=== PATIENT | female | born 1960 | race Caucasian/White ===

== ENCOUNTER → 2016-07-30 | Outpatient (CLI) | payer OTHER ==
--- NOTE | 2016-07-31 16:49 | KCIC ---
PROCEDURE Bone survey dated 07/30/2016. HISTORY Pain and swelling with lytic lesion seen on distal right femur on recent MRI. TECHNIQUE Multiple images obtained. COMPARISON Bone scan dated 07/06/2016. Knee plain films dated 06/05/2016. FINDINGS Images of the cervical spine show normal sagittal alignment. Vertebral body heights are maintained. Moderate spondylotic changes with multilevel disc space narrowing. Images of thoracic spine show normal sagittal alignment. Moderate multilevel spondylosis. Vertebral body heights are maintained. No lytic or sclerotic lesions are visualized. Images of lumbar spine show normal sagittal alignment. Vertebral body heights are maintained. Moderate endplate hypertrophic changes with multilevel disc space narrowing. Moderate arthrosis lower lumbar apophyseal joints. Single view pelvis shows normal bony alignment. No lytic or sclerotic lesions are visualized. Mild degenerative change of the bilateral SI joint and pubic symphysis. Views right femur show well-circumscribed lytic lesion of the distal 1/3 femoral shaft, similar compared to recent knee plain films. No additional lytic lesions are seen. Moderate degenerative arthrosis at the knee joint. Views of left femur show no lytic or sclerotic lesions. No periostitis or bone destruction. Mild degenerative change at the left knee joint. Images of the left humerus show intact humeral shaft. No lytic or destructive lesions. No periostitis. Images of the right humerus show normal bony alignment. No lytic or sclerotic lesions. Mild degenerative change of the AC joint. PA and lateral views of the chest shows normal heart and mediastinal contours. Lungs are clear without focal consolidation. There are no apparent bone lesion. IMPRESSION Solitary lytic focus at the distal 1/3 shaft right femur, similar to recent knee films, indeterminate. Given the lack of significant uptake on recent bone scan, this could represent a benign bone lesion or multiple myeloma. No additional lytic lesions are apparent. Electronically signed by: Eduard De La Cruz (Jul 31, 2016 16:48:05)
== END | disposition home or self-care (01) ==
LOC: KCIC 15:07
PROVIDERS: ATTEND Orthopaedic Surgery
DX: D49.89 Neoplasm of unspecified behavior of other specified sites (principal)
CPT/HCPCS: 77075

== ENCOUNTER 2016-08-09 08:18 | Outpatient (CLI) | payer OTHER ==
[2016-08-09] VITALS (10 sets, daily range): BP systolic 103–123; BP diastolic 64–75
[~2016-08-09] VITALS: Ht 177.8 cm; Wt 104.3 kg
[2016-08-09] MEDS ORDERED: LIDOCAINE 1% / SOD BICARB 8.4% 20 ML VIAL. IJ ONE ×3 (08:39→10:00)
[2016-08-09 08:51] LABS: BASO # 0.1 x10^3/uL (0.0-0.2); BASO % 2 % (0-3); EOS % 4 % (0-3); HEMATOCRIT 39.5 % (36.0-47.0); HEMOGLOBIN 13.3 g/dL (12.0-15.5); LYMPH # 2.1 x10^3/uL (1.0-4.8); LYMPH % 37 % (24-48); MEAN CORPUSCULAR HEMOGLOBIN 33 pg (25-35); MEAN CORPUSCULAR HGB CONC 34 g/dL (31-37); MEAN CORPUSCULAR VOLUME 97 fL (79-100); MONO % 8 % (0-9); NEUT % 49 % (31-73); PLATELET COUNT 328 x10^3/uL (140-400); RED BLOOD COUNT 4.07 x10^6/uL (3.50-5.40); RED CELL DISTRIBUTION WIDTH 12.8 % (11.5-14.5); WHITE BLOOD COUNT 5.6 x10^3/uL (4.0-11.0)
[2016-08-09 09:00] LABS: PROTHROMBIN TIME PATIENT 12.9 SEC (11.7-14.0)
[2016-08-09] MEDS ORDERED: FENTANYL PF 250 MCG/5 ML VIAL. ONE (09:22)
[2016-08-09] MEDS ORDERED: MIDAZOLAM HCL/PF 5 MG/5 ML VIAL. ONE (09:22)
[2016-08-09] MEDS ORDERED: MIDAZOLAM HCL/PF 5 MG/5 ML VIAL. IV ONE (10:00)
[2016-08-09] MEDS ORDERED: FENTANYL PF 250 MCG/5 ML VIAL. IV ONE (10:00)
--- NOTE | 2016-08-09 10:51 | PDOC ---
MODERATE SEDATION ASSESSMENT RISKS/ALTERNATIVES Risks/Alternatives Risks and alternatives of this type of sedation and procedure discussed with: RISK/ALTERNATIVES: Patient H & P ON CHART H & P H & P on chart and reviewed for co-morbid conditions and appropriate labs. H&P ON CHART: Yes STATUS PREG STATUS ASSESSED: N/A MEDS/ALLERGIES REVIEWED Meds/Allergies Reviewed Medications and Allergies including time and route of recently administered narcotics and sedatives. MEDS/ALLERGIES REVIEWED: Yes ASA RATING ASA RATING: I AIRWAY ASSESSMENT Airway Assessment Airway patency, oral function limitations, presence of caps, crowns, dentures, partials, and ability to extend neck assessed. AIRWAY ASSESSMENT: Yes MALLAMPATI SCORE MALLAMPATI SCORE: II PRE-SEDATION ASSESSMENT PRE-SEDATION ASSESSMENT: Yes SIMI SOLOMON MD Aug 09, 2016 10:51
[2016-08-09] MEDS ORDERED: ASPI81TA2 PO (10:54)
[2016-08-09] MEDS ORDERED: FERR159T3 PO (10:54)
[2016-08-09] MEDS ORDERED: MULT-245 PO (10:54)
--- NOTE | 2016-08-09 10:57 | PDOC1 ---
History and Physical Date of Procedure Date of Admission 08/09/[address] guided bx distal right femur lesion Indication Indication 55 YO female with solitary lucent lesion within distal right femoral diametaphysis---? plasmacytoma Past Medical History Past Medical History See Nursing Pre Procedure PMH Past Surgical History Past Surgical History See Nursing Pre Procedure PSH Current Medications Current Medications Current Medications Lidocaine/Sodium Bicarbonate (Buffered Lidocaine 1%) 20 ml STK-MED ONCE IJ ; Start 08/09/16 at 08:39; Stop 08/09/16 at 08:40; Status DC Midazolam HCl (Versed) 5 mg STK-MED ONCE .ROUTE ; Start 08/09/16 at 09:22; Stop 08/09/16 at 09:23; Status DC Fentanyl Citrate (Fentanyl 5ml Vial) 250 mcg STK-MED ONCE .ROUTE ; Start at 09:22; Stop 08/09/16 at 09:23; Status DC Lidocaine/Sodium Bicarbonate (Buffered Lidocaine 1%) 20 ml STK-MED ONCE IJ ; Start 08/09/16 at 09:36; Stop 08/09/16 at 09:37; Status DC Lidocaine/Sodium Bicarbonate (Buffered Lidocaine 1%) 20 ml 1X ONCE IJ Last administered on 08/09/16 10:12; Start 08/09/16 at 10:00; Stop 08/09/16 at 10:01 ; Status DC Midazolam HCl (Versed) 5 mg 1X ONCE IV Last administered on 08/09/16 10:12; Start 08/09/16 at 10:00; Stop 08/09/16 at 10:01; Status DC Fentanyl Citrate (Fentanyl 5ml Vial) 250 mcg 1X ONCE IV Last administered on 10:13; Start 08/09/16 at 10:00; Stop 08/09/16 at 10:01; Status DC Allergies Allergies: Coded Allergies: No Known Drug Allergies (Unverified , 08/09/16) Physical Exam Vital Signs Vital Signs Date Time Temp Pulse Resp B/P Pulse Ox O2 Delivery O2 Flow Rate FiO2 08/09/16 10:45 61 25 98 Nasal Cannula 08/09/16 10:08 2.0 08/09/16 09:22 98.2 123/75 98.2 Lungs: Clear to auscultation Heart: Regular rate Psych/Mental Status: Mental status NL Diagnostic Data/Imaging Images PMC WBBS from 07/06/16 and skeletal survey from 07/30/16 reviewed Assessment Assessment Solitary lucent lesion within distal right femur---negative bone scan---? plasmacytoma per Oncology Problems: Plan Plan CT guided distal rt femur bone bx SIMI SOLOMON MD Aug 09, 2016 10:57
--- NOTE | 2016-08-09 11:01 | PDOC ---
Exam Managed Services Consultant Managed Services Consultant Timothy Pre-Procedure Diagnosis Pre-Procedure Diagnosis 55 YO female with solitary, bone scan negative, lucent lesion within distal rt femoral diametaphysis---? of plasmacytoma raised by Oncology Post-Procedure Diagnosis Post-Procedure Diagnosis Same Procedure Performed Procedure Performed CT guided distal rt femur bone bx/aspirate Type of Anesthesia Type of Anesthesia Local + Mod sedation Estimated Blood Loss EBL: Trace Specimens Specimans Attempted drill assisted core bx nonproductive. Aspirate from center of lucent lesion productive of blood clot samples ---to path in syringe and in formalin Condition of Patient Condition of Patient Stable. No apparent complication. Disposition Disposition Home from [facility] post recovery, if no problems. F/u with Dr Chang. Full report to follow. SIMI SOLOMON MD Aug 09, 2016 11:01
--- NOTE | 2016-08-10 07:42 | RAD ---
CT-guided biopsy lucent lesion within distal right femoral diametaphysis. Indication: 55-year-old female with an incidental lucent bone lesion identified within distal right femur on the x-rays done for knee pain. Bone scan negative. No additional lucent/lytic lesion identified on skeletal survey. Bone biopsy has been requested by oncology to exclude the possibility of solitary plasmacytoma. Anesthesia: 27 minutes moderate sedation was provided utilizing a total of 2.5 mg Versed and 125 mcg fentanyl, IV. The patient was appropriately monitored by a qualified independent observer throughout the time of moderate sedation. Consent: The procedure was explained in its entirety to the patient and/or the patient's designated territory service representative by a member of the treatment team. This included a discussion of risks and benefits and acceptable alternatives to the procedure, as well as expected consequences of no treatment at all. Discussion of risks included, but was not limited to, those that are most frequent and those that are rare, but possibly severe or life-threatening, as well as the possibility of unforeseen complications. Procedure: Informed consent was obtained from the patient. She was placed supine on the CT scanner. Preliminary noncontrast CT images were obtained through distal right femur. Those images confirmed the presence of a small 15 mm lucent lesion within anterior aspect of distal right femoral diametaphysis. Endosteal scalloping is noted. There is no periosteal reaction. No tumor matrix was seen. No associated extraosseous soft tissue tissue mass. An overlying anterior skin site suitable for CT-guided biopsy was selected and marked. That area was prepped and draped in the usual sterile fashion. Moderate sedation was provided with IV Versed and fentanyl. Using aseptic technique, local anesthesia, and CT guidance, the 11-gauge needle from [employer] drill assisted bone biopsy system was successfully advanced into and through anterior femoral cortex. A single drill assisted core biopsy was performed through the lucent lesion, but was entirely nonproductive. The 11-gauge needle was reintroduced into the lucent lesion. 12 cc of blood was aspirated, and was submitted in a syringe to pathology for cell block preparation. An additional small blood clot was submitted to pathology in formalin. The needle was removed and a sterile dressing was applied. Patient tolerated the procedure well without apparent complication. Impression: CT-guided biopsy of small lucent lesion within distal right femur was attempted. Drill assisted core biopsy was entirely nonproductive. Bloody aspirate was submitted to pathology for cell block preparation. PQRS Compliance Statement: One or more of the following individualized dose reduction techniques was utilized for this procedure: 1. Automated exposure control. 2. Adjustment of MA and/or KV according to patient size. 3. Iterative reconstruction technique.
--- NOTE | 2016-08-10 16:32 | PATHOLOGY ---
PATHOLOGY REPORT * * * * * * * * FINAL DIAGNOSIS: Right femur lytic lesion, CT-guided biopsy: - Blood clot containing small segments of hematopoietic marrow and few minute segments of bone. COMMENT: The specimen primarily consists of blood clot. There are scattered small segments of hematopoietic marrow showing trilineage hematopoiesis, and there are small segments of calcified bone. There is no evidence of a plasmacytoma. There is no evidence of malignancy. (JPM:mgr; d/t: 08/10/16) REPORT ELECTRONICALLY SIGNED BY: Francis Roca M.D. DATE/TIME: 08/10/2016 16:32 * * * * * * * * GROSS PATHOLOGY: The specimen is received in formalin labeled "Silvia Flores, right femur lytic lesion". Received is a moderate amount of blood coagulum admixed with pink-jackson possible soft tissue measuring 4.2 x 3.0 x 1.1 cm in aggregate dimensions. The specimen is filtered and entirely submitted in cassettes A1 through A3. (CAA; 08/09/2016) INITIAL CPT CODE(S): A; 75354 Professional services performed [place] [email or web address] [place] [address] Technical services performed by [facility] at [address] [place] [address], [address], [place] [address]. SPECIMEN(S) RECEIVED: A.Right femur lytic lesion CLINICAL HISTORY: Solitary lucent lesion distal right femur, negative bone scan, by patient history no abnormal protein, ? plasmacytoma PATIENT: SILVIA FLORES /AGE: 9 1960 (Age: 55) PATIENT #: [id number] ALT CASE #: SPECIMEN COLLECTION DATE: 08/09/2016 SPECIMEN RECEIVED DATE: 08/09/2016 [facility] - [address] [place] [address] - PHONE: [phone] * * * END OF REPORT * * *
== END 2016-08-09 11:15 | disposition home or self-care (01) ==
LOC: INTRAD 08:18
PROVIDERS: ATTEND Internal Medicine Hematology & Oncology
DX: M89.9 Disorder of bone, unspecified (principal); M19.90 Unspecified osteoarthritis, unspecified site; Z90.710 Acquired absence of both cervix and uterus; Z79.01 Long term (current) use of anticoagulants
CPT/HCPCS: 20225; 36415; 77012; 85027; 85610; 85730; J2250; J3010; 88305

== ENCOUNTER → 2020-08-22 | Outpatient (CLI) | payer OTHER ==
[2016-08-09 11:00] VITALS: BP 107/64
[~2020-08-22] MED LIST: ASPI-630 PO; CHERRY PO; CHOL500016 PO; CRAN500T3 PO; CYAN25008 PO; DOCU-150 PO; FERR159T3 PO; FISH12002 PO; GLUC15006 PO; MAGN500C10 PO; MULT-245 PO; POTA10TA12 PO; TURM500C4 PO; VITA400C37 PO; [UNRECOGNIZED DRUG - CODE] PO
[2020-08-22 09:19] LABS: BASO # 0.1 x10^3/uL (0.0-0.2); BASO % 1 % (0-3); EOS # 0.2 x10^3/uL (0.0-0.7); EOS % 3 % (0-3); HEMATOCRIT 37.8 % (36.0-47.0); HEMOGLOBIN 12.9 g/dL (12.0-15.5); LYMPH # 1.6 x10^3/uL (1.0-4.8); LYMPH % 28 % (24-48); MEAN CORPUSCULAR HEMOGLOBIN 33 pg (25-35); MEAN CORPUSCULAR HGB CONC 34 g/dL (31-37); MEAN CORPUSCULAR VOLUME 96 fL (79-100); MONO # 0.5 x10^3/uL (0.0-1.1); MONO % 8 % (0-9); NEUT # 3.4 x10^3/uL (1.8-7.7); NEUT % 60 % (31-73); PLATELET COUNT 364 x10^3/uL (140-400); RED BLOOD COUNT 3.95 x10^6/uL (3.50-5.40); RED CELL DISTRIBUTION WIDTH 13.3 % (11.5-14.5); WHITE BLOOD COUNT 5.7 x10^3/uL (4.0-11.0)
[2020-08-22 09:28] LABS: PROTHROMBIN TIME PATIENT 12.3 SEC (11.7-14.0)
[2020-08-22 09:29] LABS: ALBUMIN 3.7 g/dL (3.4-5.0); CALCIUM 8.6 mg/dL (8.5-10.1); CREATININE 0.7 mg/dL (0.6-1.0); GFR 85.4
--- NOTE | 2020-08-22 12:07 | EKG ---
[facility] [address] [place] [address] Test Date: 2020-08-22 Test Time: 12:02:52 Pat Name: JOEY LIZAMA Department: Room: Gender: F Boiler Blower: : 1960 Requested By: SUZY HEBERT Order Number: [id number] Reading MD: Wilder Thakur MD Measurements Intervals [place] Rate: 65 P: 48 SC: 150 QRS: -2 QRSD: 86 T: 34 QT: 412 QTc: 429 Interpretive Statements SINUS RHYTHM NON-SPECIFIC ST/T CHANGES Electronically Signed On 08-25-2020 10:45:00 CDT by Wilder Thakur MD
--- NOTE | 2020-08-22 13:10 | RAD ---
AP and Lateral Views of the Chest 08/22/2020 12:34 PM Indication: Reason: joint class-hx hyperlipidemia-preop eval, knee surgery / Spl. Instructions: / Hi story: Comparison: None Findings: There is no focal consolidation or infiltrate identified. The cardiomediastinal silhouette is within normal limits. There is no evidence of pneumothorax or pleural effusion. Degenerative ellis es of the thoracic spine noted. Impression: No evidence of acute cardiopulmonary process. Electronically signed by: Casey Alcaraz MD (08/22/2020 1:08 PM) [id number]
[2020-08-23 02:12] LABS: HEMOGLOBIN A1C 5.4 % (4.8-5.6)
== END ==
LOC: SURGPAT 12:33
PROVIDERS: ATTEND Orthopaedic Surgery
DX: Z01.818 Encounter for other preprocedural examination (principal); M17.11 Unilateral primary osteoarthritis, right knee; E78.5 Hyperlipidemia, unspecified
CPT/HCPCS: 36415; 71046; 80048; 82040; 82306; 83036; 85025; 85610; 85651; 87641; 93005

== ENCOUNTER 2020-09-12 08:31 | Observation (INO) | payer OTHER ==
[2020-08-22 12:20] VITALS: BP 151/86
[~2020-09-12] VITALS: Ht 175.3 cm; Wt 104.6 kg
[2020-09-12] VITALS (11 sets, daily range): BP systolic 97–132; BP diastolic 55–77
[~2020-09-12 08:31] MED LIST changes: +ACETAMINOPHEN 500 MG TABLET PO PRN; +CELECOXIB 100 MG CAPSULE. PO PRN; -DOCU-150 PO; +DOCU-158 PO; +IV RINGERS,LACTATED 1000ML 1,000 ML IV SCH; +MORPHINE SULFATE 2 MG/ML VIAL. IVP PRN; +PROCHLORPERAZINE 10 MG/2 ML VIAL. IVP PRN; +TRANEXAMIC ACID 1,000 MG in IV NS 50ML -- 1ST BAG INJ ONE; +TRANEXAMIC ACID 1,000 MG in IV NS 50ML -- 2ND BAG INJ ONE; +TV=100ml MORPHINE 5 MG, KETOROLAC 30 MG, ROPIVacaine 0.5% PF 60 ML, EPINEPH... INT ART ONE; +fentaNYL PF VIAL 100 MCG/2 ML VIAL IVP PRN
[2020-09-12] MEDS ORDERED: TRANEXAMIC ACID in NS IVPB 100 ML ONE (08:42)
[2020-09-12] MEDS ORDERED: TOBRAMYCIN POWDER 1.2 GM VIAL. ONE (08:43)
[2020-09-12] MEDS ORDERED: VANCOMYCIN 1 GM VIAL. ONE ×2 (08:43)
[2020-09-12] MEDS ORDERED: fentaNYL PF VIAL 100 MCG/2 ML VIAL ONE ×4 (09:38→13:10)
[2020-09-12] MEDS ORDERED: SUCCINYLCHOLINE 200 MG/10 ML VIAL. ONE (09:40)
[2020-09-12] MEDS ORDERED: BUPIVACAINE MPF 0.25% 30 ML VIAL. ONE (10:01)
[2020-09-12] MEDS ORDERED: BUPIVACAINE MPF 0.5% 30 ML VIAL. ONE (10:01)
[2020-09-12] MEDS ORDERED: methylPREDNISolone ACETATE 80 MG/ML VIAL. ONE (10:01)
[2020-09-12] MEDS ORDERED: PROPOFOL 10 MG/ML (20ML) VIAL. IV ONE (11:08)
[2020-09-12] MEDS ORDERED: DEXAMETHASONE SOD PHOS 4 MG/ML VIAL ONE (11:08)
[2020-09-12] MEDS ORDERED: LIDOCAINE 2% PF 5 ML VIAL. ONE (11:08)
[2020-09-12] MEDS ORDERED: ONDANSETRON PF 4 MG/2 ML VIAL. ONE (11:08)
[2020-09-12] MEDS ORDERED: SEVOFLURANE 61 TO 120 MINUTES. IH ONE (12:29)
[2020-09-12] MEDS: fentaNYL PF VIAL 100 MCG/2 ML VIAL IVP PRN ×2 (13:15→13:20)
[2020-09-12] MEDS ORDERED: METOCLOPRAMIDE HCL 10 MG/2 ML VIAL. IVP PRN (13:30)
[2020-09-12] MEDS ORDERED: diphenhydrAMINE 50 MG/ML VIAL IVP PRN (13:30)
[2020-09-12] MEDS ORDERED: fentaNYL PF VIAL 100 MCG/2 ML VIAL IVP PRN (13:30)
[2020-09-12] MEDS ORDERED: 0.9 % SODIUM CHLORIDE 10 ML DISP.SYRIN. IV PRN (13:30)
[2020-09-12] MEDS ORDERED: CALCIUM CARBONATE 500 MG TAB.CHEW PO PRN (13:30)
[2020-09-12] MEDS ORDERED: ZOLPIDEM 5 MG TABLET. PO PRN (13:30)
[2020-09-12] MEDS ORDERED: PROCHLORPERAZINE 5 MG TABLET. PO PRN (13:30)
[2020-09-12] MEDS ORDERED: MORPHINE SULFATE 4 MG/ML VIAL. IVP PRN (13:30)
[2020-09-12] MEDS ORDERED: DEXTROSE 50% 25 GM / 50ML DISP.SYRIN. IV PRN (13:30)
[2020-09-12] MEDS ORDERED: PROCHLORPERAZINE 10 MG/2 ML VIAL. ONE (13:32)
[2020-09-12] MEDS ORDERED: HYDROmorphone 2 MG/ML VIAL ONE (13:33)
[2020-09-12] MEDS: HYDROmorphone 2 MG/ML VIAL IVP PRN ×4 (13:35→14:05)
--- NOTE | 2020-09-12 14:13 | PDOC4 ---
Operative Note Operative Note Date of Procedure: September 12, 2020 Pre-Op Diagnosis: Unilateral primary osteoarthritis, right knee. M17.11 Post-Op Diagnosis: same Procedure: right total knee arthroplasty with patella resurfacing, robotic assisted, CPT 71040 Surgeon: Suzy Johnson MD Safe And Vault Mechanic: GISEL Watkins Anesthesia: General EBL: 150 mL Specimens Obtained: right knee bone and soft tissue Complications: none Drains: pain catheter Tourniquet time: 70 Minutes Tourniquet Pressure: 300 mm Hg Indications for Procedure: Knee arthritis pain, affecting quality of life, unrelieved by nonoperative management Findings: Severe osteoarthritis with bone on bone contact laterally, with full thickness cartilage loss medially and at the patellofemoral joint, and fixed valgus contracture required lateral tibiofemoral soft tissue balancing. Implants: [employer]ay[employer] Nephew Journey II Total Knee System, Size 5 right bicruciate stabilized Journey II BCS Oxinium femoral component, size 4 right Journey nonporous tibial baseplate, size 5-6 12 mm right Journey II BCS constrained articular insert, 35 mm oval Denise II resurfacing patellar component Procedure in Detail: The patient was identified in the preoperative holding area, and the correct right lower extremity was marked by me. The patient was taken to the operating room where the patient was anesthetized by the Department of Anesthesia. Preoperative antibiotics were given intravenously. Tranexamic acid 1 g was given intravenously for intraoperative hemostasis. A "time-out" procedure was performed. The patient was positioned supine on the operative table with a tourniquet on the upper right thigh. A right hip bump and heel bump were attached to the operating table for later intraoperative positioning. The right lower limb was thoroughly scrubbed, then sterile Chloraprep solution was applied, and the limb was draped in sterile fashion. The operating team wore exhaust ventilated hoods with [employer] Personal Protection Toga Zippered Peel-Away protection system. An impervious stockinet and an adhesive drape were used such that the skin was entirely covered. The limb was exsanguinated with an Esmarch bandage, and the tourniquet was inflated. A midline skin incision was made with a scalpel using the patella and tibial tubercle as landmarks. Electrocautery was used for hemostasis. My assistant merchandise manager used rake retractors and a laparotomy sponge. A medial parapatellar arthrotomy incision was used with extension into the distal quadriceps tendon. The patella was retracted laterally and Hohmann retractors were now used by my assistant merchandise manager. Excess synovium, the menisci, and the cruciate ligaments were resected sharply. A periarticular multimodal ropivacaine anesthetic injection was used in the suprapatellar pouch and distal quadriceps muscle. The patella was everted and exposed. The patella thickness was measured with a caliper, and then cut freehand with a saw, using caliper measurements to assess the resection. The lateral retinaculum was partially released from the lateral patella using electrocautery. Rongeurs were used to make sure there were no remaining exposed patellar osteophytes medially or laterally. The patella was sized, and then drilled for an oval three-peg patella component. The tibial tracker array for the CORI system was applied to the tibial crest four finger breadths below the tibial tubercle, using percutaneous incisions and bicortical pins. The femoral tracker array was applied outside of the original incision using two separate stab incisions using bicortical pins. Checkpoint verification pins were not used, and the checkpoints used were on the arrays. Using the point probe, the medial and lateral malleoli were localized and the locations were stored. The center of the tibia was noted at the anterior cruciate ligament insertion and stored. The center of the femur was marked at the intersection of Whitesidess line with the transepicondylar axis. The hip center calculation was performed with range of motion of the hip. The femur neutral position was identified, and simulated weightbearing was performed with axial compression on the foot. Range of motion without stress was performed and the data collected. Range of motion with valgus stress, and range of motion with varus stress data collection was also performed. Rotational references include the Whitesidess line, and the trans-epicondylar axis. The femoral articular surface was now mapped in 3 dimensions using the point probe and digital data collected. The tibial condyle articular surfaces and cortical edges were mapped in 3 dimensions using the point probe including the medial and lateral tibial plateau. Implant planning was now performed on-screen with manipulation of the implant sizes, cut thicknesses and gaps, component rotation, component flexion/extension and component varus/valgus until satisfactory ligament balance, alignment and stability of the knee was expected throughout the range of motion. A lateral tibiofemoral release was performed with a piecrust technique using an 11 blade scalpel in the lateral soft tissues including the IT band. I did careful excision of medial osteophytes and medial joint line dissection due to the varus malalignment. My assistant merchandise manager held a Hohmann retractor, a medial Z-retractor, and an Army-Sturgis retractor to protect the medial and lateral collateral ligaments, the patellar tendon, the skin and the other soft tissues. The point probe was used to confirm the location of the checkpoint verification pins. The distal femoral surface was now prepared using CORI handpiece for bone removal to the previously planned distal femoral resection. The crosshairs at the pin locations were marked by using a mallet and the point probe for definitive location. A 5-in-1 Journey II cutting guide was then applied and the position was checked with the virtual shantanu wing from the CORI to ensure proper placement as the pins were applied. The posterior, anterior, and all chamfer cuts were made with the oscillating saw. Excess bone was removed with an osteotome and rongeurs. The tibial cutting guide was applied, positioned using the CORI virtual shantanu wing, and secured to the upper tibia using three pins at the previously planned location. The virtual shantanu wing was used to confirm the resection depth, slope and coronal alignment. The upper tibia was cut made with an oscillating saw. My assistant merchandise manager held Hohmann retractors and a posterior cruciate ligament retractor to protect the medial and lateral collateral ligaments, the patellar tendon, the skin, the peroneal nerve and the other soft tissues. The upper tibia was sized with a trial baseplate. The posterior compartment was cleared of osteophytes and loose bodies. The periarticular anesthetic injection was used in the posterior compartment. The box cut for a posterior stabilized component was made. A preliminary reduction was performed with a trial femur, trial tibial baseplate and trial polyethylene. The CORI system was used to confirm range of motion, and postoperative stressed gap assessment. The stability was assessed using different thicknesses of tibial articular surface to find satisfactory stability and good range of motion. The rotation of the tibial component was marked on the upper tibia. Final trial reduction was now performed verifying patella tracking and tibiofemoral stability and alignment. The bone pins and tracker arrays were removed, and the checkpoint verification pins were removed. The tibia preparation was completed with a drill, saw, and fin punch at the previously noted rotation. The final implants were verified and opened. Outer gloves were changed by the operating team. Betadine lavage was used and immedi ately rinsed with saline. After the bone cuts were irrigated with saline using the [place] InterPulse device the cut bone surfaces were carefully dried with suction and laparotomy sponges. Two packages of Zayas + Nephew Rally HV bone cement were mixed in powdered form with Vancomycin 1gm and Tobramycin 1.2 gm, and then vacuum-mixed with the monomer, and placed into a cement gun. The cut surfaces of the bone were thoroughly dried with suction and with laparotomy sponges for cement interdigitation. The final components were cemented into place. The knee was kept at full extension while the cement hardened, and excess cement was removed. Tranexamic acid 1 g was redosed intravenously for additional intraoperative hemostasis. The tourniquet was released, and electrocautery was used for hemostasis. A final periarticular anesthetic injection was used for pain relief. The bone pin sites on the tibial crest were closed with #3-0 Nylon sutures. A final check of [id number] and stability was made, and the polyethylene implant final size was chosen. The polyethylene implant was secured to the tibial baseplate, and the knee was reduced a final time and range of motion and stability was confirmed. The medial collateral ligament had been noted to be calcified and fragile intraoperatively. It had remained intact up until this point in the case. On the final reduction with the XLPE polyethylene, the medial collateral ligament became incompetent. I removed the XLPE polyethylene and I switched to a constrained polyethylene which stabilizes the knee nicely now. A pain catheter was inserted. Topical Vancomycin 1 gm was used during the c losure. The arthrotomy was closed with interrupted [id number] #1 Vicryl suture. The subcutaneous tissues were approximated initially with #2-0 Vicryl inverted interrupted sutures by my assistant merchandise manager. Next the subcuticular layer was approximated in a running fashion with #3-0 STRATAFIX suture by my assistant merchandise manager. The skin incision was then covered and reinforced by my assistant merchandise manager with Acticoat, followed by a RAZA single use negative pressure wound therapy dressing Soft roll and an Placido wrap were applied. Needle and sponge counts were correct. There were no apparent complications. The patient returned to the recovery room in stable condition. SUZY JOHNSON MD September 12, 2020 14:12
--- NOTE | 2020-09-12 14:18 | RAD ---
EXAM: Right knee, 2 views. HISTORY: Arthroplasty. COMPARISON: None. FINDINGS: 2 views the right knee are obtained. There is a right knee arthroplasty in expected positio n. There is soft tissue gas and joint fluid due to recent surgery. There is a posterior joint loose b ave. IMPRESSION: Right knee arthroplasty in expected position. Electronically signed by: Ligia Roper MD (09/12/2020 2:16 PM) [id number]
--- NOTE | 2020-09-12 16:49 | NUR ---
received from recovery. she is drowsy but denies pain at this time. she ambulated to bathroom to recliner without problems. remains at bedside. she had good pulses, sensation and motion bilateral lower extremities.
[2020-09-12] MEDS: IV NORMAL SALINE 1000ML BAG 1,000 ML IV SCH (17:16)
[2020-09-12] MEDS: ONDANSETRON ODT 4 MG TAB.RAPDIS. PO SCH ×2 (17:21→23:55)
[2020-09-12] MEDS: ONDANSETRON PF 4 MG/2 ML VIAL. IVP SCH ×2 (17:21→23:55)
[2020-09-12] MEDS: KETOROLAC 30MG VIAL 30 MG, BUPIVACAINE MPF 0.25% 20 ML, EPINEPHrine 0.5 MG in TOTAL VOL... INT ART SCH (18:15)
[2020-09-12] MEDS: ASPIRIN ENTERIC COATED 325 MG TABLET.DR. PO SCH (20:56)
[2020-09-12] MEDS: oxyCODONE/APAP 5/325 1 TAB TABLET PO PRN (20:57)
[2020-09-13 03:10] VITALS: BP 117/67
[2020-09-13] MEDS: KETOROLAC 30MG VIAL 30 MG, BUPIVACAINE MPF 0.25% 20 ML, EPINEPHrine 0.5 MG in TOTAL VOL... INT ART SCH (05:29)
[2020-09-13] MEDS: ONDANSETRON PF 4 MG/2 ML VIAL. IVP SCH ×2 (05:30→12:00)
[2020-09-13] MEDS: ONDANSETRON ODT 4 MG TAB.RAPDIS. PO SCH ×2 (05:30→12:00)
[2020-09-13] MEDS ORDERED: MAGNESIUM HYDROXIDE 2,400 MG/30 ML ORAL.SUSP. PO PRN (06:00)
[2020-09-13 06:29] VITALS: BP 119/70
[2020-09-13] MEDS: MAGNESIUM OXIDE 400 MG TABLET PO SCH (08:18)
[2020-09-13] MEDS: oxyCODONE/APAP 5/325 1 TAB TABLET PO PRN ×4 (08:18→20:58)
[2020-09-13] MEDS: MULTIVITAMIN with MINERAL TABLET. PO SCH (08:18)
[2020-09-13] MEDS: CALCIUM POLYCARBOPHIL 625 MG TABLET PO SCH (08:18)
[2020-09-13] MEDS: ASPIRIN ENTERIC COATED 325 MG TABLET.DR. PO SCH ×2 (08:19→20:13)
[2020-09-13] MEDS: CYANOCOBALAMIN (VITAMIN B-12) 1,000 MCG TABLET. PO SCH (08:19)
[2020-09-13] MEDS: SENNOSIDES/DOCUSATE 8.6/50MG TABLET. PO SCH (08:19)
[2020-09-13] MEDS: POTASSIUM CHLORIDE 10 MEQ TABLET.ER. PO SCH (08:19)
[2020-09-13] MEDS: CELECOXIB 100 MG CAPSULE. PO SCH (08:20)
[2020-09-13] MEDS: CHOLECALCIFEROL (VITAMIN D3) 1,000 UNIT TABLET PO SCH (08:21)
[2020-09-13 08:59] LABS: HEMATOCRIT 35.2 % (36.0-47.0); HEMOGLOBIN 11.7 g/dL (12.0-15.5)
[2020-09-13] MEDS ORDERED: ONDANSETRON PF 4 MG/2 ML VIAL. IVP PRN (12:00)
[2020-09-13] MEDS ORDERED: ONDANSETRON ODT 4 MG TAB.RAPDIS. PO PRN (12:00)
--- NOTE | 2020-09-13 12:37 | PDOC ---
PROGRESS NOTES Date of Service DATE: 09/13/20 TIME: 12:36 Subjective Subjective Doing well. Not yet safe ambulation with walker. Objective Vital Signs Vital Signs Date Time Temp Pulse Resp B/P (MAP) Pulse Ox O2 Delivery O2 Flow Rate FiO2 09/13/20 08:48 93 Room Air 09/13/20 06:29 97.7 78 20 119/70 (86) 97.7 09/12/20 16:30 2.0 Physical Exam RAZA dressing working. RAZA has spots of bloody drainage. Pain catheter intact. Calf soft and NT. Homans neg. Able to DF and plantarflex foot with no evidence of neurovascular injury nor compartment syndrome. No blisters. Minimal erythema. Moderate swelling as expected. Labs Laboratory Tests Test 09/13/20 08:00 Hemoglobin 11.7 g/dL (12.0-15.5) Hematocrit 35.2 % (36.0-47.0) Mean Corpuscular Hemoglobin Concent 33 g/dL (31-37) Laboratory Tests Test 09/13/20 08:00 Hemoglobin 11.7 g/dL (12.0-15.5) Hematocrit 35.2 % (36.0-47.0) Mean Corpuscular Hemoglobin Concent 33 g/dL (31-37) Imaging Postop x-rays and report reviewed by me. Satisfactory TKA without apparent complications. PATIENT: JOEY LIZAMA LACCOUNT: [id number] : 1960 LOCATION: [address] [place] [address] AGE: 59 SEX: F EXAM STATUS: ADM IN ORD. PHYSICIAN: SUZY HEBERT MD REASON: POST OP PROCEDURE: KNEE RIGHT 2V EXAM: Right knee, 2 views. HISTORY: Arthroplasty. COMPARISON: None. FINDINGS: 2 views the right knee are obtained. There is a right knee arthr oplasty in expected position. There is soft tissue gas and joint fluid due to recent surgery. There is a posterior joint loose body. IMPRESSION: Right knee arthroplasty in expected position. Electronically signed by: Ligia Roper MD (09/12/2020 2:16 PM) [id number] Assessment Assessment POD 1 after TKA Plan Plan of Care Needs to stay in hospital for safe walker use prior to discharge. Continue DVT prophylaxis and PT. Discharge planning. Justicifation of Admission Dx: Justifications for Admission: Justification of Admission Dx: Yes SUZY HEBERT MD September 13, 2020 12:37
[2020-09-13] MEDS: IV NORMAL SALINE 1000ML BAG 1,000 ML IV SCH (13:30)
[2020-09-13] MEDS ORDERED: BISACODYL 10 MG SUPP.RECT. PR PRN (16:00)
[2020-09-13 17:55] VITALS: BP 110/58
[2020-09-13 22:50] VITALS: BP 116/63
[2020-09-14 02:27] VITALS: BP 115/66
[2020-09-14] MEDS: oxyCODONE/APAP 5/325 1 TAB TABLET PO PRN ×4 (04:12→15:15)
[2020-09-14 06:00] VITALS: BP 107/70
[2020-09-14] MEDS: IV NORMAL SALINE 1000ML BAG 1,000 ML IV SCH (07:42)
[2020-09-14] MEDS: SENNOSIDES/DOCUSATE 8.6/50MG TABLET. PO SCH (08:26)
[2020-09-14] MEDS: CHOLECALCIFEROL (VITAMIN D3) 1,000 UNIT TABLET PO SCH (08:27)
[2020-09-14] MEDS: ASPIRIN ENTERIC COATED 325 MG TABLET.DR. PO SCH (08:27)
[2020-09-14] MEDS: CALCIUM POLYCARBOPHIL 625 MG TABLET PO SCH (08:28)
[2020-09-14] MEDS: MULTIVITAMIN with MINERAL TABLET. PO SCH (08:28)
[2020-09-14] MEDS: CELECOXIB 100 MG CAPSULE. PO SCH (08:28)
[2020-09-14] MEDS: CYANOCOBALAMIN (VITAMIN B-12) 1,000 MCG TABLET. PO SCH (08:28)
[2020-09-14] MEDS: MAGNESIUM OXIDE 400 MG TABLET PO SCH (08:28)
[2020-09-14] MEDS: POTASSIUM CHLORIDE 10 MEQ TABLET.ER. PO SCH (08:28)
--- NOTE | 2020-09-14 09:46 | NUR ---
am care completed. she became hypotensive and symptomatic. she was lightheaded and felt "funny". feet elevated and cool cloth to forehead. at bedside. bp was 91/54 then 10 min later 87/55. now it is 94/60. encouraged to drink fluids.
[2020-09-14 09:51] LABS: HEMATOCRIT 33.5 % (36.0-47.0); HEMOGLOBIN 11.2 g/dL (12.0-15.5)
--- NOTE | 2020-09-14 11:46 | NUR ---
TOLERATED THERAPY WITHOUT FEELING LIGHTHEADED. ENCOURAGED TO DRINK FLUIDS; VERBALIZED UNDERSTANDING
[2020-09-14 12:21] VITALS: BP 94/67
--- NOTE | 2020-09-14 12:30 | PDOC ---
PROGRESS NOTES Date of Service DATE: 09/14/20 TIME: 12:29 Subjective Subjective She had an episode of lightheadedness but it resolved quickly. Blood pressure was a little bit low but has normalized. She feels well and wants to go home. She looks well. No chest pain shortness of breath or syncope. Objective Vital Signs Vital Signs Date Time Temp Pulse Resp B/P (MAP) Pulse Ox O2 Delivery O2 Flow Rate FiO2 09/14/20 12:21 98.3 81 20 94/67 (76) Room Air 98.3 09/14/20 06:00 94 09/12/20 16:30 2.0 Physical Exam The reinaldo dressing is intact with minimal spotty bloody drainage. Calf is soft and nontender. Neurovascularly intact. Thigh, calf, and knee all appear benign. Labs Laboratory Tests Test 09/13/20 08:00 09/14/20 09:30 Hemoglobin 11.7 g/dL (12.0-15.5) 11.2 g/dL (12.0-15.5) Hematocrit 35.2 % (36.0-47.0) 33.5 % (36.0-47.0) Mean Corpuscular Hemoglobin Concent 33 g/dL (31-37) 34 g/dL (31-37) Laboratory Tests Test 09/14/20 09:30 Hemoglobin 11.2 g/dL (12.0-15.5) Hematocrit 33.5 % (36.0-47.0) Mean Corpuscular Hemoglobin Concent 34 g/dL (31-37) Assessment Assessment POD#2 after TKA Plan Plan of Longterm today with outpatient therapy. Aspirin twice a day for DVT prophylaxis. Weightbearing as tolerated. Office follow-up next week. Justicifation of Admission Dx: Justifications for Admission: Justification of Admission Dx: Yes SUZY HEBERT MD September 14, 2020 12:30
--- NOTE | 2020-09-14 12:33 | PDOC3 ---
Discharge Summary Visit Information Date of Admission: September 12, 2020 Date of Discharge: September 14, 2020 Final Diagnosis Osteoarthritis right knee. Aftercare after total knee arthroplasty. Brief Hospital Course Allergies Allergies Coded Allergies Type Severity Reaction Last Updated Verified No Known Drug Allergies 09/12/20 No Vital Signs Vital Signs Date Time Temp Pulse Resp B/P (MAP) Pulse Ox O2 Delivery O2 Flow Rate FiO2 09/14/20 12:21 98.3 81 20 94/67 (76) Room Air 98.3 09/14/20 06:00 94 09/12/20 16:30 2.0 Lab Results Laboratory Tests Test 09/13/20 08:00 09/14/20 09:30 Hemoglobin 11.7 g/dL (12.0-15.5) 11.2 g/dL (12.0-15.5) Hematocrit 35.2 % (36.0-47.0) 33.5 % (36.0-47.0) Mean Corpuscular Hemoglobin Concent 33 g/dL (31-37) 34 g/dL (31-37) Laboratory Tests Test 09/14/20 09:30 Hemoglobin 11.2 g/dL (12.0-15.5) Hematocrit 33.5 % (36.0-47.0) Mean Corpuscular Hemoglobin Concent 34 g/dL (31-37) Brief Hospital Course 59 year old who presented with knee osteoarthritis, for elective total knee arthroplasty. The patient underwent total knee arthroplasty under general anesthesia the day of admission. Perioperative antibiotics and DVT prophylaxis were used. Postoperatively physical therapy and case management were consulted. The patient progressed and is stable for discharge. Discharge Information Condition at Discharge: Stable Follow Up: Weeks Disposition/Orders: D/C to Home Scheduled Aspirin (Aspirin), 1 TAB PO DAILY, (Reported) Cholecalciferol (Vitamin D3) (Vitamin D3), 125 MCG PO DAILY, (Reported) Cranberry Extract (Cranberry), 4,200 MG PO DAILY, (Reported) Cyanocobalamin (Vitamin B-12) (Vitamin B12), 1,000 MCG PO DAILY, (Reported) Docusate Sodium (Stool Softener), 100 MG PO DAILY, (Reported) Ferrous Sulfate, Dried (Iron), 65 MG PO DAILY, (Reported) Fish Oil/Borage/Flax/Om3,6,9#1 (Casey 3-6-9 1,200 mg Softgel), 1,600 MG PO DAILY, (Reported) Glucosamine Hcl (Glucosamine Hcl), 3,000 MG PO DAILY, (Reported) Magnesium Oxide (Magnesium), 500 MG PO DAILY, (Reported) Methylcellulose (Fiber Therapy), 4 CAP PO DAILY, (Reported) Multivitamin (Multi Vitamin Daily), 1 EACH PO DAILY, (Reported) Potassium Chloride (Potassium Chloride ), 99 MG PO DAILY, (Reported) Turmeric/Turmeric Root Extract (Turmeric 500 mg Capsule), 1 EACH PO DAILY, (Reported) Vitamin E Acetate (Vitamin E), 400 UNIT PO DAILY, (Reported) [ureña], 1,200 MG PO DAILY, (Reported) Patient Instructions Patient Instructions Continue to weight bearing as tolerated with walker. Keep RAZA dressing intact and dry. Cut off RAZA "tail" and throw away battery pack on the 7th day after surgery. Tape down RAZA tail Leave RAZA dressing intact otherwise. Follow up with Dr. Johnson's office as scheduled. Call if you need to reschedule. Continue enteric coated aspirin 325 mg by mouth twice a day for 30 days to prevent blood clots. Justicifation of Admission Dx: Justifications for Admission: Justification of Admission Dx: Yes SUZY JOHNSON MD September 14, 2020 12:33
[2020-09-14] MEDS ORDERED: ASPI325T11 PO (14:44)
--- NOTE | 2020-09-14 15:20 | NUR ---
REVIEWED DISCHARGE INSTRUCTIONS WITH PATIENT AND . SALINE LOCK DC'S. REVIEWED DISCHARGE INSTRUCTIONS REGARDING INCISION BATHING DRIVING AND RAZA CARE. SHE HAS HER 1ST PT ARRANGED AND SCRIPT GIVEN ALL QUESTIONS ANSWERED. REINSTRUCTED TO TAKE ONLY 1 PAIN PILL DURING THE DAY AND 2 AT BEDTIME TO HELP WITH THE LIGHTHEADEDNESS AND TO DRINK FLUIDS FOR NEST FEW DAYS. SHE VERBALIZED UNDERSTANDING OF THESE INSTRUCTIONS.
--- NOTE | 2020-09-16 17:07 | PATHOLOGY ---
[facility] Accession Number: [id number] . 01 Material submitted: . knee - RIGHT KNEE CHAPMAN AND JOINT TISSUE. Modifiers: right . 01 Clinical history: . RIGHT KNEE TOTAL ARTHROPLASTY . 02 Diagnosis: Segments of bone and articular cartilage, right total knee arthroplasty: - Degenerative arthritis. (JOSHUAM:blas; 09/16/2020) [facility]BR 09/16/2020 1651 Local . 02 Electronically signed: . Francis Roca MD, Pathologist NPI- [id number] . 01 Gross description: . The specimen is received in formalin, labeled "Silvia Flores, right knee bone and tissue" received is a 7.5 cm aggregate of multiple irregular to rounded fragments of bone consistent with a knee joint. The articular surfaces are worn, irregular and eroded. On sectioning, greenfield-white areas of eburnation are noted. Recording Studio Setup Worker, decalcified sections are submitted in one cassette A1. [facility] 09/13/20 FLOWER/CARLISLE 09/13/2020 1633 Local . 02 Pathologist provided ICD-10: M17.11 . 02 CPT . 794031, 661070 Specimen Comment: A courtesy copy of this report has been sent to [phone] Specimen Comment: Report sent to Specimen Comment: A duplicate report has been generated due to demographic updates. Performed at: 01 [facility] [address], [place] [id number] MD Jacek Lin MD Phone: [phone] Performed at: 02 [facility] [address] [place], [place] [id number] MD Francis Roca MD Phone: [phone]
== END 2020-09-14 16:45 | disposition home or self-care (01) ==
LOC: SURG 08:31 → 4 SOUTHEST 13:22
PROVIDERS: ADMIT Orthopaedic Surgery; ATTEND Orthopaedic Surgery
DX: M17.11 Unilateral primary osteoarthritis, right knee (principal); E78.5 Hyperlipidemia, unspecified; Z79.82 Long term (current) use of aspirin
CPT/HCPCS: 27447; 36415; 73560; 85014; 85018; 86850; 86900; 86901; 88305; 88311; 96361; 96365; 96366; 96375; 97116; 97150; 97162; 97166; 97530; 97535; A4213; A4628; A4930; A6253; A6258; A6450; C1713; C1755; C1776; G0378; G0379; J0171; J0330; J0690; J0780; J1040; J1100; J1170; J1885; J2270; J2405; J2704; J2795; J3010; J3260; J3370; J3490; J7030; S2900